=== PATIENT | male | born 1980 | race Caucasian/White ===

== ENCOUNTER → 2016-05-10 | Day surgery (SDC) | payer OTHER ==
[2016-05-10 10:09] LABS: BASOPHIL 0.3 % (0-2); EOSINOPHIL 2.5 % (0-5); HCT 45.4 % (42.0-52.0); HGB 16.2 g/dl (13.2-18.0); LYMPHOCYTE 30.2 % (15-48); MCH 31.7 pg (25.0-31.0); MCHC 35.7 g/dL (32.0-36.0); MCV 88.8 fL (78.0-100.0); MONOCYTE 6.1 % (0-12); MPV 10.6 fL (6.0-9.5); NEUTROPHIL 60.9 % (41-80); PLT 202 K/uL (150-400); RBC 5.11 M/uL (4.70-6.00); RDW 12.8 % (11.5-14.0); WBC 7.7 K/uL (4.0-10.5)
== END | disposition home or self-care (01) ==
LOC: FOR 09:18 → FAS 10:45 → FOR 10:45
PROVIDERS: Oral & Maxillofacial Surgery
DX: K02.9 Dental caries, unspecified (principal); K01.1 Impacted teeth; F41.9 Anxiety disorder, unspecified; Z79.899 Other long term (current) drug therapy
CPT/HCPCS: 36415; 85025; J1100; J1170; J2405; J2704; J3010